=== PATIENT | female | born 2000 | race Caucasian/White ===

== ENCOUNTER 2025-07-24 01:11 | Emergency (ER) | payer MEDICAID ==
[~2025-07-24] VITALS: Ht 152.4 cm; Wt 79.4 kg
[2025-07-24 01:17] VITALS: TEMP 37.1; O2SAT 100; O2SAT 99
[2025-07-24] MEDS ORDERED: AMOX-494 MT (01:44)
[2025-07-24] MEDS ORDERED: OFLO5DRO4 EACH EAR (01:44)
[2025-07-24 01:56] VITALS: BP 145/93; PULSE 106; RESP 16
[2025-07-24] MEDS: KETOROLAC 30MG/ML VIAL IM ONE (01:56)
== END 2025-07-24 01:57 | disposition home or self-care (01) ==
LOC: ER 01:11
DX: H60.93 Unspecified otitis externa, bilateral (principal); Z98.890 Other specified postprocedural states
CPT/HCPCS: 99283